=== PATIENT | female | born 1960 | race Caucasian/White ===

== ENCOUNTER 2024-03-04 12:35 | Day surgery (SDC) | payer BC ==
[2024-03-04] MEDS: ZOLEDRONIC ACID/MAN/WATER 5 MG/100 ML INFUS..BTL IVPB ONE (13:04)
[2024-03-04 14:52] VITALS: BP 126/70; PULSE 65; RESP 16; TEMP 97.9
== END 2024-03-04 14:53 | disposition home or self-care (01) ==
LOC: FINFUSION 12:35 → FM/S 12:39 → FINFUSION 14:53
PROVIDERS: ATTEND Family Medicine
PROC: 3E033GC Introduction of Other Therapeutic Substance into Peripheral Vein, Percutaneous Approach (ICD-10-PCS; principal; 2024-03-04)
DX: M81.0 Age-related osteoporosis without current pathological fracture (principal)
CPT/HCPCS: 96365; J3489